=== PATIENT | female | born 1940 | race Caucasian/White ===

== ENCOUNTER → 2018-05-18 | Outpatient (CLI) | payer MEDICARE, OTHER ==
[~2018-05-18] MED LIST: ACEBUTCAFT PO; ASPI325 PO; ASPI81EC PO; ATEN50; ATEN50 PO; CALGLU500; CLIN300 PO; DICL75ER PO; DOC250 PO; HYDACE5 PO; HYDACE5325 PO; IBUP600 PO; IBUP800 PO; INDO75CR PO; K-Dur20 MEQ PO; LOSHYD100 PO; METDOP250; METDOP250 PO; METPRE4DP PO; NAPR500 PO; OXYACE5T PO; Percocet 5-3251 EACH PO; ROSU10TA PO; [UNRECOGNIZED DRUG - REMARK]
== END | disposition home or self-care (01) ==
LOC: LAB 16:45 → LAB SHORT 16:45
DX: N76.4 Abscess of vulva (principal)
CPT/HCPCS: 87070; 87077; 87147; 87186; 87205

== ENCOUNTER 2020-10-15 18:42 | Inpatient (IN) | payer MEDICARE, OTHER ==
[~2020-10-15] VITALS: Ht 162.6 cm; Wt 91.9 kg
[~2020-10-15 18:42] MED LIST changes: +AMLO5 PO; +ASPI81CH PO; +Aspirin EC81 MG PO; +DYAZIDE 37.5-21 EACH PO; +LISI5 PO; +LOSARTAN-HCTZ1 EACH PO; +LOVA40 PO; +OXYC5 PO; +OYSTER SHELL 51 EACH PO; +PROM12.5S PO; +SULFAMETHOXAZO1 EAC1 PO
[2020-10-15 19:30] LABS: BASOPHILS ABSOLUTE AUTO 0.05 K/mm3 (0.00-0.23); BASOPHILS PERCENT AUTO 1 % (0-2); EOSINOPHILS ABSOLUTE AUTO 0.13 K/mm3 (0.00-0.68); EOSINOPHILS PERCENT AUTO 1 % (0-6); Hematocrit 41.7 % (33.0-51.0); Hemoglobin 13.6 g/dL (11.5-16.0); IMMATURE GRAN ABSOLUTE AUTO 0.05 K/mm3 (0.00-0.10); IMMATURE GRAN PERCENT AUTO 1 % (0-1); LYMPHOCYTES ABSOLUTE AUTO 2.37 K/mm3 (0.84-5.20); LYMPHOCYTES PERCENT AUTO 24 % (21-46); MONOCYTES ABSOLUTE AUTO 0.64 K/mm3 (0.16-1.47); MONOCYTES PERCENT AUTO 7 % (4-13); Mean Corpuscular HGB 30.2 pg (26.0-34.0); Mean Corpuscular HGB Conc 32.6 g/dL (31.5-36.5); Mean Corpuscular Volume 93 fL (80-100); Mean Platelet Volume 12.3 fL (9.1-12.4); NEUTROPHILS ABSOLUTE AUTO 6.58 K/mm3 (1.96-9.15); NEUTROPHILS PERCENT AUTO 67 % (41-73); Platelet Count 234 K/mm3 (150-400); RDW Coefficient Variation 13.9 % (11.7-14.2); RDW Standard Deviation 47.4 fL (35.1-46.3); Red Blood Cell Count 4.51 M/mm3 (3.80-5.20); White Blood Cell Count 9.82 K/mm3 (4.00-11.30)
[2020-10-15 19:52] LABS: Alanine Aminotransfer (ALT/SGP 28 U/L (12-78); Albumin, Blood 3.8 g/dL (3.4-5.0); Albumin/Globulin Ratio 1.1 (0.8-1.8); Alk Phos 73 U/L (50-136); Anion Gap 11 mmol/L (6-16); Aspartate Aminotrans (AST/SGOT 20 U/L (12-37); Bilirubin, Total 0.6 mg/dL (0.1-1.0); Blood Urea Nitrogen 24 mg/dL (8-24); Bun/Creatinine Ratio 27.2 (12.0-20.0); CO2, Blood 23 mmol/L (21-32); Calcium, Blood 9.6 mg/dL (8.5-10.1); Chloride, Blood 106 mmol/L (98-108); Creatinine, Blood 0.88 mg/dL (0.40-1.00); Globulin, Blood 3.6 g/dL (2.2-4.0); Glomerular Filtration Rate >60 (60-); Glucose, Blood 152 mg/dL (70-99); Potassium, Blood 3.7 mmol/L (3.5-5.5); Sodium, Blood 140 mmol/L (136-145); Total Protein, Blood 7.4 g/dL (6.4-8.2); Troponin I <0.015 ng/mL (0.000-0.040)
[2020-10-15 20:13] LABS: Thyroid Stimulating Hormone 2.31 uIU/mL (0.360-4.800)
[2020-10-15 20:45] LABS: International Normalized Ratio 1.11; Prothrombin Time Results 11.8 Sec (9.7-11.5)
[2020-10-15] MEDS ORDERED: LOSARTAN-HCTZ1 EAC5 PO (21:00)
[2020-10-15] MEDS ORDERED: ATEN25 PO (21:27)
[2020-10-16 00:42] LABS: Magnesium, Blood 1.9 mg/dL (1.6-2.4)
--- NOTE | 2020-10-16 04:47 | NUR ---
SHIFT SUMMARY NEW ER ADMIT THIS SHIFT (0005), NO ACUTE CHANGES SINCE ASSUMING CARE, SOB W/ANY EXCERTION, AMBULATING W/ST BY ASSIST TO BSC, SLEPT ON/OFF T/O THE NIGHT WAKING SEVERAL TIMES TO TOILET, SLEEPING AT THIS TIME, CALL LIGHT IN REACH, WILL CONT TO MONITOR UNTIL REPORT GIVEN TO DAY RN.
--- NOTE | 2020-10-16 07:45 | NUR ---
SIOBHAN gave me permission to help care for her on 10/16/20 at approximately 0745.
[2020-10-16 09:34] LABS: BASOPHILS ABSOLUTE AUTO 0.05 K/mm3 (0.00-0.23); BASOPHILS PERCENT AUTO 1 % (0-2); EOSINOPHILS ABSOLUTE AUTO 0.14 K/mm3 (0.00-0.68); EOSINOPHILS PERCENT AUTO 2 % (0-6); Hematocrit 42.7 % (33.0-51.0); Hemoglobin 13.9 g/dL (11.5-16.0); IMMATURE GRAN ABSOLUTE AUTO 0.04 K/mm3 (0.00-0.10); IMMATURE GRAN PERCENT AUTO 1 % (0-1); LYMPHOCYTES ABSOLUTE AUTO 2.18 K/mm3 (0.84-5.20); LYMPHOCYTES PERCENT AUTO 25 % (21-46); MONOCYTES ABSOLUTE AUTO 0.49 K/mm3 (0.16-1.47); MONOCYTES PERCENT AUTO 6 % (4-13); Mean Corpuscular HGB 30.4 pg (26.0-34.0); Mean Corpuscular HGB Conc 32.6 g/dL (31.5-36.5); Mean Corpuscular Volume 93 fL (80-100); Mean Platelet Volume 12.2 fL (9.1-12.4); NEUTROPHILS ABSOLUTE AUTO 5.75 K/mm3 (1.96-9.15); NEUTROPHILS PERCENT AUTO 66 % (41-73); Platelet Count 211 K/mm3 (150-400); RDW Coefficient Variation 13.9 % (11.7-14.2); RDW Standard Deviation 47.1 fL (35.1-46.3); Red Blood Cell Count 4.57 M/mm3 (3.80-5.20); White Blood Cell Count 8.65 K/mm3 (4.00-11.30)
[2020-10-16 09:54] LABS: Anion Gap 8 mmol/L (6-16); Blood Urea Nitrogen 21 mg/dL (8-24); Bun/Creatinine Ratio 22.3 (12.0-20.0); CO2, Blood 29 mmol/L (21-32); Calcium, Blood 9.4 mg/dL (8.5-10.1); Chloride, Blood 101 mmol/L (98-108); Creatinine, Blood 0.94 mg/dL (0.40-1.00); Glomerular Filtration Rate >60 (60-); Glucose, Blood 142 mg/dL (70-99); Sodium, Blood 138 mmol/L (136-145); Troponin I <0.015 ng/mL (0.000-0.040)
--- NOTE | 2020-10-16 10:30 | NUR ---
I performed a head to toe assessment on K.
[2020-10-16] MEDS ORDERED: LOVA40 PO (14:28)
[2020-10-16] MEDS ORDERED: DICL75ER PO (14:29)
[2020-10-16] MEDS ORDERED: AMLO5 PO (14:29)
[2020-10-16] MEDS ORDERED: ATEN100 PO (14:29)
--- NOTE | 2020-10-16 17:50 | NUR ---
SHIFT SUMMARY PATIENT ALERT AND ORIENTED THROUGHOUT THIS SHIFT. PATIENT SITTING UP IN BED THROUGHOUT THIS SHIFT. PATIENT REMAINS ON 4L O2 THROUGHOUT THIS SHIFT WITH WHEEZY LUNG SOUNDS. PATIENT DENIES PAIN THROUGHOUT THIS SHIFT. PATIENT GETS SOB WITH EXERTION. PATIENT UP TO THE BATHROOOM INDEPENDENTLY THROUGHOUT THIS SHIFT. PATIENT CURRENTLY SITTING UP IN BED, AT BEDSIDE. PATIENT DENIES FURTHER NEEDS AT THIS TIME.
[2020-10-17 01:29] LABS: BASOPHILS ABSOLUTE AUTO 0.06 K/mm3 (0.00-0.23); BASOPHILS PERCENT AUTO 1 % (0-2); EOSINOPHILS ABSOLUTE AUTO 0.22 K/mm3 (0.00-0.68); EOSINOPHILS PERCENT AUTO 2 % (0-6); Hematocrit 42.1 % (33.0-51.0); Hemoglobin 13.7 g/dL (11.5-16.0); IMMATURE GRAN ABSOLUTE AUTO 0.04 K/mm3 (0.00-0.10); IMMATURE GRAN PERCENT AUTO 0 % (0-1); LYMPHOCYTES ABSOLUTE AUTO 3.36 K/mm3 (0.84-5.20); LYMPHOCYTES PERCENT AUTO 36 % (21-46); MONOCYTES ABSOLUTE AUTO 0.78 K/mm3 (0.16-1.47); MONOCYTES PERCENT AUTO 8 % (4-13); Mean Corpuscular HGB 30.2 pg (26.0-34.0); Mean Corpuscular HGB Conc 32.5 g/dL (31.5-36.5); Mean Corpuscular Volume 93 fL (80-100); Mean Platelet Volume 12.7 fL (9.1-12.4); NEUTROPHILS ABSOLUTE AUTO 5.01 K/mm3 (1.96-9.15); NEUTROPHILS PERCENT AUTO 53 % (41-73); Platelet Count 233 K/mm3 (150-400); RDW Coefficient Variation 13.7 % (11.7-14.2); RDW Standard Deviation 46.7 fL (35.1-46.3); Red Blood Cell Count 4.54 M/mm3 (3.80-5.20); White Blood Cell Count 9.47 K/mm3 (4.00-11.30)
[2020-10-17 01:38] LABS: Albumin, Blood 3.6 g/dL (3.4-5.0); Anion Gap 8 mmol/L (6-16); Blood Urea Nitrogen 21 mg/dL (8-24); CO2, Blood 31 mmol/L (21-32); Calcium, Blood 9.6 mg/dL (8.5-10.1); Chloride, Blood 100 mmol/L (98-108); Creatinine, Blood 1.05 mg/dL (0.40-1.00); Glomerular Filtration Rate 54 (60-); Glucose, Blood 106 mg/dL (70-99); Phosphorus, Blood 3.4 mg/dL (2.5-4.9); Potassium, Blood 3.4 mmol/L (3.5-5.5); Sodium, Blood 139 mmol/L (136-145)
--- NOTE | 2020-10-17 07:26 | NUR ---
Patient oob on commode independently from bed. Brandee diuresed well overnight and was able to stick to a small amount of ice chips overnight. No complaints of discomfort. However, she was still SOB with minimal exertion. TELE remained Atrial Fib in the 120's all night
--- NOTE | 2020-10-17 08:03 | NUR ---
ECHOCARDIOGRAM COMPLETED
--- NOTE | 2020-10-17 11:54 | NUR ---
PATIENT DAUGHTER, KAMILAH, UPDATED. WANTS RESULTS OF ECHO CALLED TO HER AT [phone].
--- NOTE | 2020-10-17 16:44 | NUR ---
ADVISED OF B.P. AND HEART RATE. LOPRESSOR IV AND PO HAVE BEEN GIVEN. WISHES REPEAT B.P. IN ABOUT 20 MINUTES.
--- NOTE | 2020-10-17 16:54 | NUR ---
ALERT. ORIENTED. STANDBY ASSIST. TELE ON AND WAS RUNNING 126-150 AFIB. GIVEN LOPRESSOR AND NOW 130 WITH AWARE. WEANING OXYGEN DOWN. CURRENTLY AT 2 LPM WITH SATS MAINTAINED IN 90'S. DENIES SOB. ECHO DONE THIS AM, BUT REPORT NOT IN COMPUTER YET. ABLE TO MAKE NEEDS KNOWN. WCTM
--- NOTE | 2020-10-17 17:17 | NUR ---
TALKED TO ABOUT B.P. AND HEART RATE. GIVE 5 MG LOPRESSOR IV NOW.
--- NOTE | 2020-10-17 17:27 | NUR ---
Spiritual care note: Brandee tells me she is hopeful and feeling "much better." She reports a strong chuck and feels well loved and supported by family. No cocnerns presented. Prayer for continued healing provided. I will remain available.
--- NOTE | 2020-10-17 18:20 | NUR ---
PER PATIENT TO PCU. HEART RATE 130'S AFIB.
[2020-10-17 18:36] LABS: Magnesium, Blood 1.9 mg/dL (1.6-2.4); Potassium, Blood 3.4 mmol/L (3.5-5.5)
--- NOTE | 2020-10-17 18:51 | NUR ---
Received the pt from medical floor to PCU 6. She is in no acute distress. Conversant, wearing oxygen at 2 l/min. Vital signs taken and heart rhythm verified with tech to be afib 128-132 bpm. Heparin gtt infusing at 19 u/kg/hour or 27.4 cc/hour.
--- NOTE | 2020-10-17 19:05 | NUR ---
PATIENT TO PCU. REPORT TO ADDISON GARCIA. LABS OF MAGNESIUM AND POTASSIUM ORDERED PER DR. GAINES.
--- NOTE | 2020-10-17 19:11 | NUR ---
At pt's request, her daughter Rashida was called on the room phone to update her on the pt's transfer to PCU and current condition. Rashida states that she is concerned and would like the doctor to consult cardiology. The pt is talking and joking with me at the bedside, now talking with her daughter on the phone.
--- NOTE | 2020-10-17 19:25 | NUR ---
Call to Dr. Conn to check and see if any new orders are needed after pt's transfer to PCU 6. No new medication orders at this time; plan is to continue IV metoprolol PRN as ordered, and as long as pt's heart rate doesn't go above 150 and as long as she is aysmptomatic with current heart rate.
--- NOTE | 2020-10-17 19:30 | NUR ---
ASSUMED CARE RECEIVED BEDSIDE REPORT FROM ADDISONRN; PT A&O X4; VSS; AFIB NOTED ON TELE W/ HR 120; HEP GTT VARIFIED @ 19U/KG/HR; O2 SATS >93 ON 2L NC; EDUCATION PROVIDED FOR UNIT SAFETY/PROTOCOL; EDUCATED PT ON TELE MONITOR, AFIB, AND HEP GTT; NO DISTRESS NOTED; CALL LIGHT IN REACH; BED IN LOWEST POSITION.
[2020-10-18 05:39] LABS: Albumin, Blood 3.4 g/dL (3.4-5.0); Anion Gap 8 mmol/L (6-16); Blood Urea Nitrogen 22 mg/dL (8-24); Bun/Creatinine Ratio 22.9 (12.0-20.0); CO2, Blood 28 mmol/L (21-32); Calcium, Blood 9.4 mg/dL (8.5-10.1); Chloride, Blood 102 mmol/L (98-108); Creatinine, Blood 0.96 mg/dL (0.40-1.00); Glomerular Filtration Rate 60 (60-); Glucose, Blood 97 mg/dL (70-99); Phosphorus, Blood 3.6 mg/dL (2.5-4.9); Potassium, Blood 3.3 mmol/L (3.5-5.5); Sodium, Blood 138 mmol/L (136-145)
--- NOTE | 2020-10-18 05:59 | NUR ---
SHIFT SUMMARY PT A&O X 4; AGGITATED AT TIMES; WAS QUITE RUDE TO METER TESTER PRIMARY AND CURSED AT HIM; DENIES CHEST PAIN; VSS; HR REMAINS ELEVATED; LOPRESSOR PO AND IV PROVIDED THIS SHIFT; HEP GTT AT 19U/KG/HR, PER PHARMACY; O2 SATS >93 ON 2L NC; PT STATES SHE DOES NOT USE O2 AT BASELINE; SLEPT SEVERAL HOURS IN BETWEEN INTERVENTIONS; CALL LIGHT IN REACH; BED IN LOWEST POSITION; WILL CONTINUE TO MONITOR CLOSELY UNTIL HAND OFF TO DAY SHIFT RN.
[2020-10-18 12:51] LABS: CHOL/HDL RATIO 3.5; Cholesterol 148 mg/dL (50-200); HDL Cholesterol 42 mg/dL (>39); LDL/HDL RATIO 1.6; Low Density Lipoprotein Chol 68 mg/dL (0-110); Triglycerides 188 mg/dL (30-160); Very Low Density Lipoprot Chol 37 mg/dL (6-32)
[2020-10-18 13:35] LABS: Influenza A, PCR Negative (NEGATIVE); Influenza B, PCR Negative (NEGATIVE); Resp Syncytial Virus, PCR Negative (NEGATIVE); SARS-Cov-2 (COVID-19) PCR, MMC Negative (NEGATIVE)
--- NOTE | 2020-10-18 17:52 | NUR ---
PATIENT ALERT AND ORIENTED, VSS AND O2 TITRATED DOWN TO ROOM AIR THIS SHIFT, PATIENT TOLERATING WELL. ANAHI/CARDIOVERSION DONE WITH DR. MATUTE THIS SHIFT, SEE TIMEOUT/SEDATION/MEDICATION DOCUMENTATION. PATIENT TOLERATED PROCEDURE WELL, X1 SHOCK AT 200 J AND CONVERTED TO NSR.
[2020-10-19 04:21] LABS: BASOPHILS ABSOLUTE AUTO 0.04 K/mm3 (0.00-0.23); BASOPHILS PERCENT AUTO 1 % (0-2); EOSINOPHILS ABSOLUTE AUTO 0.25 K/mm3 (0.00-0.68); EOSINOPHILS PERCENT AUTO 3 % (0-6); Hematocrit 41.6 % (33.0-51.0); Hemoglobin 13.7 g/dL (11.5-16.0); IMMATURE GRAN ABSOLUTE AUTO 0.03 K/mm3 (0.00-0.10); IMMATURE GRAN PERCENT AUTO 0 % (0-1); LYMPHOCYTES ABSOLUTE AUTO 2.54 K/mm3 (0.84-5.20); LYMPHOCYTES PERCENT AUTO 32 % (21-46); MONOCYTES ABSOLUTE AUTO 0.67 K/mm3 (0.16-1.47); MONOCYTES PERCENT AUTO 8 % (4-13); Mean Corpuscular HGB 30.4 pg (26.0-34.0); Mean Corpuscular HGB Conc 32.9 g/dL (31.5-36.5); Mean Corpuscular Volume 92 fL (80-100); Mean Platelet Volume 12.2 fL (9.1-12.4); NEUTROPHILS ABSOLUTE AUTO 4.41 K/mm3 (1.96-9.15); NEUTROPHILS PERCENT AUTO 56 % (41-73); Platelet Count 216 K/mm3 (150-400); RDW Coefficient Variation 13.8 % (11.7-14.2); RDW Standard Deviation 46.9 fL (35.1-46.3); White Blood Cell Count 7.94 K/mm3 (4.00-11.30)
[2020-10-19 04:42] LABS: Bun/Creatinine Ratio 24.8 (12.0-20.0); Calcium, Blood 9.4 mg/dL (8.5-10.1); Creatinine, Blood 1.01 mg/dL (0.40-1.00); Potassium, Blood 3.3 mmol/L (3.5-5.5)
--- NOTE | 2020-10-19 05:59 | NUR ---
SHIFT SUMMARY PT A&O X 4; VSS; DENIES CHEST PAIN; PT REMAINED IN NSR FOR REMAINDER OF SHIFT W/ HR 70-80; HEP GTT @ 11 U/KG/HR; PT STATES SHE FEELS WELL AND HER DEMEANOR SEEMS IMPROVED FROM PREVIOUS SHIFT; O2 SATS >93 ON RA; PT SLEPT SEVERAL HOURS; NO DISTRESS NOTED; CALL LIGHT IN REACH; BED IN LOWEST POSITION; WILL CONTINUE TO MONITOR CLOSELY UNTIL HAND OFF TO DAY SHIFT RN.
--- NOTE | 2020-10-19 13:43 | NUR ---
PATIENT ON AMIODORONE DRIP, HR MAINTAINING IN 130S. DR. JUJU ARAGON.
--- NOTE | 2020-10-19 17:31 | NUR ---
PATIENT CONVERTED BACK INTO A FIB THIS SHIFT WITH HR IN THE 150s, DR. PERDOMO AND DR. MATUTE NOTIFIED. AMIODORONE BOLUS AND DRIP ORDERED BY DR. MATUTE, PATIENT HR NOW RUNNING IN 120S. ON ROOM AIR WITH O2 MAINTAINING, BUT COMPLAINS OF COUGH AT TIMES. PATIENT ASYMPTOMATIC OF HIGH HR. PATIENT ABLE TO TOLERATE AMBULATION TO BEDSIDE COMMODE WITH X1 ASSIST FOR LINE MANAGEMENT, VOIDING FREQUENTLY THROUGH SHIFT. PATIENT DENIED CHEST PAIN/DISCOMFORT THIS SHIFT.
[2020-10-20 04:21] LABS: BASOPHILS ABSOLUTE AUTO 0.06 K/mm3 (0.00-0.23); BASOPHILS PERCENT AUTO 1 % (0-2); EOSINOPHILS ABSOLUTE AUTO 0.23 K/mm3 (0.00-0.68); EOSINOPHILS PERCENT AUTO 2 % (0-6); Hemoglobin 14.7 g/dL (11.5-16.0); IMMATURE GRAN ABSOLUTE AUTO 0.07 K/mm3 (0.00-0.10); IMMATURE GRAN PERCENT AUTO 1 % (0-1); LYMPHOCYTES ABSOLUTE AUTO 2.97 K/mm3 (0.84-5.20); LYMPHOCYTES PERCENT AUTO 28 % (21-46); MONOCYTES ABSOLUTE AUTO 0.89 K/mm3 (0.16-1.47); MONOCYTES PERCENT AUTO 8 % (4-13); Mean Corpuscular HGB 29.9 pg (26.0-34.0); Mean Corpuscular HGB Conc 32.7 g/dL (31.5-36.5); Mean Corpuscular Volume 92 fL (80-100); NEUTROPHILS ABSOLUTE AUTO 6.58 K/mm3 (1.96-9.15); NEUTROPHILS PERCENT AUTO 61 % (41-73); Platelet Count 250 K/mm3 (150-400); RDW Coefficient Variation 13.9 % (11.7-14.2); RDW Standard Deviation 46.6 fL (35.1-46.3); Red Blood Cell Count 4.92 M/mm3 (3.80-5.20)
[2020-10-20 04:35] LABS: Albumin, Blood 3.9 g/dL (3.4-5.0); Anion Gap 8 mmol/L (6-16); Blood Urea Nitrogen 23 mg/dL (8-24); Bun/Creatinine Ratio 22.5 (12.0-20.0); CO2, Blood 25 mmol/L (21-32); Chloride, Blood 104 mmol/L (98-108); Creatinine, Blood 1.02 mg/dL (0.40-1.00); Glomerular Filtration Rate 56 (60-); Glucose, Blood 114 mg/dL (70-99); Phosphorus, Blood 3.4 mg/dL (2.5-4.9); Sodium, Blood 137 mmol/L (136-145)
--- NOTE | 2020-10-20 06:25 | NUR ---
SHIFT SUMMARY NO ACUTE CHANGES THIS SHIFT. PT A&OX4. SP02>92% ON RA. TELEMETRY READS AFIB, HR 110'S-130'S. AMIODERONE GTT AND HEPARIN GTT INFUSING PER EMAR. PT DENIES PAIN. PT SBA UP TO BSC MULTIPLE TIMES TO VOID AND ONE BM THIS SHIFT. NEW IV PLACED IN R FOREARM. PT'S DAUGHTER CALLED AT APPROX 2300 FOR PT UPDATE. STATED SHE IS COMING DOWN AT END OF THIS MONTH TO CARE FOR HER PARENTS. PT STATED MULTIPLE TIMES "I AM READY TO GO HOME" "I WANT TO GO HOME". PT SLEPT ONLY A COUPLE HOURS DURING NIGHT. CALL LIGHT IN REACH. WILL GIVE REPORT TO ONCOMING SHIFT NURSE.
--- NOTE | 2020-10-20 11:44 | NUR ---
PATIENT HR MAINTAINING IN 130S, DR. ROBERTO NOTIFIED, DR. OTTO NOTIFIED AND DISCUSSED CASE. DR. OTTO AGREED TO COME AND EVALUATE PATIENT AND GAVE ORDERS TO RESTART AMIODORONE DRIP AT 0.5 MG / HR.
--- NOTE | 2020-10-20 13:23 | NUR ---
CARDIOVERSION DONE AT BEDSIDE WITH PROCEDURE START TIME OF 1215. THIS RN, AMOL RN, DEISY RT, AND DR. OTTO AT BEDSIDE FOR PROCEDURE. MEDS GIVEN PER HC SEDATION/MEDICATION RECORD. SHOCK ADMINISTERED AT 200 J TWICE, PATIENT AT FIRST CONVERTED TO NSR, BUT CONVERTED BACK TO A FIB EACH TIME. PATIENT TOLERATED PROCEDURE WELL, PATIENT HAS WOKEN UP AND NO SIGNS OF ACUTE DISTRESS AT THIS TIME.
--- NOTE | 2020-10-20 17:23 | NUR ---
PATIENT HR REMAINED ELEVATED THIS SHIFT AFTER STOPPING AMIODORONE DRIP, DR. ROBERTO AND DR. OTTO NOTIFIED, CARDIOVERSION DONE AT BEDSIDE WITH DETAILS EXPLAINED IN PREVIOUS NOTE. PATIENT'S HR AT THIS TIME IN 110S-120S, PATIENT REMAINS ASYMPTOMATIC, ON ROOM AIR WITH VSS.
--- NOTE | 2020-10-21 05:44 | NUR ---
SHIFT SUMMARY PT A&OX4. SP02>92% ON RA. TELEMETRY READS AFIB, HR 120'S. PT WAS GIVEN IV LOPRESSOR PRN FOR ELEVATED HR X1 THIS SHIFT WITH NO CHANGE. PT DENIES PAIN. PT UP TO BSC MULTIPLE TIMES THIS SHIFT. PT DID NOT SLEEP THE NIGHT BEFORE, PT DID SLEEP SEVERAL HOURS THIS SHIFT, STATES THIS MORNING SHE FEELS "MUCH BETTER NOW THAT I GOT SLEEP". PT'S DAUGHTER CALLED LAST NIGHT AT APPROX 2200 FOR A PT UPDATE. PT'S DAUGHTER STATED SHE DOES NOT WANT HER MOM DISCHARGED TOMORROW (THURSDAY) UNTIL THE PT'S "HR IS FIXED". CALL LIGHT IN REACH. WILL GIVE REPORT TO ONCOMING SHIFT NURSE.
[2020-10-21 10:43] LABS: Albumin, Blood 4.1 g/dL (3.4-5.0); Anion Gap 10 mmol/L (6-16); Blood Urea Nitrogen 27 mg/dL (8-24); Bun/Creatinine Ratio 25.7 (12.0-20.0); CO2, Blood 23 mmol/L (21-32); Calcium, Blood 10.3 mg/dL (8.5-10.1); Chloride, Blood 101 mmol/L (98-108); Creatinine, Blood 1.05 mg/dL (0.40-1.00); Glomerular Filtration Rate 54 (60-); Glucose, Blood 150 mg/dL (70-99); Phosphorus, Blood 3.3 mg/dL (2.5-4.9); Potassium, Blood 4.2 mmol/L (3.5-5.5); Sodium, Blood 134 mmol/L (136-145)
--- NOTE | 2020-10-21 17:59 | NUR ---
SHIFT SUMMARY PT IS ALERT AND ORINTEDx4. TELEMETERY HAS SHOWN TO BE A-FIB WITH RATES 110'S-120'S OCC 130'S WITH ACTIVITY. DISCUSSED HR PLAN WITH DR ROBRETO AND PLAN IS TO HAVE CARDIOLOGY FOLLOWUP TOMORROW. URINE OUTPUT FROM IV LASIX TODAY WAS 500ML. VITALS HAVE REMAINED STABLE.
[2020-10-22 05:02] LABS: Bun/Creatinine Ratio 27.5 (12.0-20.0); Creatinine, Blood 1.31 mg/dL (0.40-1.00); Potassium, Blood 4.4 mmol/L (3.5-5.5)
--- NOTE | 2020-10-22 05:17 | NUR ---
SHIFT SUMMARY NO ACUTE CHANGES THIS SHIFT. PT A&OX4. SP02>92% ON RA. TELEMETRY READS AFIB, HR 90'S-120'S. PT DENIES PAIN. PT DID C/O OF BEING NERVOUS ABOUT MEETING WITH AMISH IN AM TO DISCUSS PLAN. LISTENED TO PT AND GAVE WARM BLANKET. PT WAS ABLE TO SLEEP AFTER THAT. PT AMBULATED TO BATHROOM WITH NO ISSUES THIS SHIFT. PT STATED SHE WAS HUNGRY AND ATE 1/2 TURKEY SANDWICH AND JELLO. CALL LIGHT IN REACH. WILL GIVE REPORT TO ONCOMING SHIFT.
--- NOTE | 2020-10-22 17:54 | NUR ---
SHIFT SUMMARY: PATIENT IS ALERT AND ORIENTED X4. ON ROOM AIR. TELE SHOWING AFIB WITH HR AVERAGING 110-120's. PT DENIES CHEST PAIN AND PRESSURE. BP STABLE. NO ACUTE CHANGES THIS SHIFT. PATIENT UP TO BEDISDE COMMODE WITH MINIMAL SHORTNESS OF BREATH. LEFT ANTICUBITAL AND R FOREARM IV SALINE LOCKED AND FLUSHING WELL. DR. RODRIGUEZ IN TO SEE PATIENT WITH CHANGES OF MEDS. PT IN TO VISIT. WILL CONTINUE TO MONITOR AND REPORT OFF.
[2020-10-23 04:11] LABS: Hematocrit 47.7 % (33.0-51.0); Hemoglobin 15.9 g/dL (11.5-16.0)
[2020-10-23 04:30] LABS: Bun/Creatinine Ratio 30.5 (12.0-20.0); Calcium, Blood 9.9 mg/dL (8.5-10.1); Creatinine, Blood 1.28 mg/dL (0.40-1.00); Potassium, Blood 4.6 mmol/L (3.5-5.5)
--- NOTE | 2020-10-23 06:05 | NUR ---
SHIFT SUMMARY PATIENT PLEASENT AND COOPERATIVE THROUGHOUT THE NIGHT. PATIENT APPEARED TO SLEEP WELL THROUGHOUT MOST OF THE NIGHT. PATIENT'S HEART RATE REMAINED AFIB WITH A RATE IN THE 110'S-120'S. PATIENT CURRENTLY APPEARS TO BE SLEEPING, RESPIRATIONS EVEN AND UNLABORED AT THIS TIME. PATIENT'S DAUGHTER JOSIAS REQUESTING A CALL FROM THE DIRECTOR PRODUCT SAFET[employer] TODAY TO DISCUSE PATIENT'S PLAN OF CARE, WILL INFORM ONCOMING RN OF DAUGHTER'S REQUEST.
--- NOTE | 2020-10-23 11:02 | NUR ---
UPDATE: CALL PLACED TO DR. RODRIGUEZ. PLANS TO SEE PATIENT TODAY AND FOLLOW UP. CALL PLACED TO DR. ROBERTO. PATIENT ACTIVITY CHANGED TO AD ANJANA. WILL CONTINUE TO MONITOR PT STATUS.
[2020-10-23] MEDS ORDERED: METO50 PO (11:30)
[2020-10-23] MEDS ORDERED: ACET325 PO (11:31)
[2020-10-23] MEDS ORDERED: DOCU100 PO (11:34)
[2020-10-23] MEDS ORDERED: ATOR40TA PO (11:34)
[2020-10-23] MEDS ORDERED: Pacerone400 MG PO (11:34)
[2020-10-23] MEDS ORDERED: Amiodarone HCl200 MG PO (11:36)
[2020-10-23] MEDS ORDERED: LOSA50 PO (11:37)
[2020-10-23] MEDS ORDERED: LASIX20 M2 PO (11:37)
[2020-10-23] MEDS ORDERED: POTCHL20ER PO (11:39)
[2020-10-23] MEDS ORDERED: XARELTO20 MG PO (11:40)
[2020-10-23] MEDS ORDERED: SPIR25 PO (11:41)
--- NOTE | 2020-10-23 12:14 | NUR ---
PT REPORTING FRQUENCY AND URGENCYTO VOID WITH MINIMAL OUTPUT, BLADDERSCAN AT 21cc; PT CONTINUE TO REPORT THE URGE TO VOID; PT BECOMES DIAPHORETIC, COOL AND CLAMMY; NOTIFIED DR ROBERTO, DR MOIRA CONNELL.
--- NOTE | 2020-10-23 16:09 | NUR ---
DISCHARGE/SUMMARY: PT ALERT AND ORIENTED X4. ON ROOM AIR. TELE SHOWING AFIB HR AVERAGING 110-120's. PATIENT DENIES CHEST PAIN, PRESSURE, DIZZINESS, AND NAUSEA. VITAL SIGNS STABLE WITH ELEVATED HR. FLUID RESTRICTION MAINTAINED. NO ACUTE CHANGES. DISCHARGE INSTRUCTIONS REVIEWED AND QUESTIONS ANSWERED. HEART CENTER APPLIED ZIO PATCH. IN TO SEE PT, AND TAKEN TO CAR VIA WHEELCHAIR.
[2021-02-04] MEDS ORDERED: METO25ER PO (05:04)
== END 2020-10-23 16:05 | disposition home or self-care (01) | DRG 291 ==
LOC: ER 18:42 → MEDS 23:59 → PCU 23:59 → MEDS 10-16 00:08 → PCU 10-17 18:37
PROVIDERS: Emergency Medicine; Family Medicine; Internal Medicine; Internal Medicine Cardiovascular Disease; Student in an Organized Health Care Education/Training Program; ADMIT Internal Medicine
PROC: 5A2204Z Restoration of Cardiac Rhythm, Single (ICD-10-PCS; principal; 2020-10-18)
PROC: 5A2204Z Restoration of Cardiac Rhythm, Single (ICD-10-PCS; 2020-10-18)
PROC: B24BZZ4 Ultrasonography of Heart with Aorta, Transesophageal (ICD-10-PCS; 2020-10-20)
DX: I11.0 Hypertensive heart disease with heart failure (principal); J96.01 Acute respiratory failure with hypoxia; I50.21 Acute systolic (congestive) heart failure; N17.9 Acute kidney failure, unspecified; I48.91 Unspecified atrial fibrillation; Z79.82 Long term (current) use of aspirin; E78.5 Hyperlipidemia, unspecified; E78.6 Lipoprotein deficiency; E66.01 Morbid (severe) obesity due to excess calories; Z68.37 Body mass index [BMI] 37.0-37.9, adult; Z87.891 Personal history of nicotine dependence; I34.0 Nonrheumatic mitral (valve) insufficiency
CPT/HCPCS: 0241U; 36415; 71045; 80048; 80053; 80061; 80069; 83735; 83880; 84132; 84145; 84443; 84484; 85014; 85018; 85025; 85610; 85730; 93005; 93010; 93246; 93306; 93312; 93325; 94760; 96374; 96375; 98960; 99285-25; A9270; J0282; J1644; J1940; J2250; J3010; J7060

== ENCOUNTER 2020-12-04 07:27 | Day surgery (SDC) | payer MEDICARE, OTHER ==
[~2020-12-04] VITALS: Ht 162.6 cm; Wt 93.0 kg
[~2020-12-04 07:27] MED LIST changes: +ACET325 PO; +ATEN100 PO; +ATEN25 PO; +ATOR40TA PO; +Amiodarone HCl200 MG PO; +DOCU100 PO; +LASIX20 M2 PO; +LOSA50 PO; +LOSARTAN-HCTZ1 EAC5 PO; +METO50 PO; +POTCHL20ER PO; +Pacerone400 MG PO; +SPIR25 PO; +XARELTO20 MG PO
--- NOTE | 2020-12-04 09:16 | NUR ---
PT STABLE POST CARDIOVERSION. PT DROWSY, BUT CONVERSING APPROPRIATELY; DENIES PAIN POST PROCEDURE. MONITOR SB 50'S, B/P 90-100'S/60'S, SPO2 92-97% RA. PT'S DAUGHTER AT BEDSIDE ATTENTIVE.
--- NOTE | 2020-12-04 09:58 | NUR ---
PT DRESSED SELF WITH MIN ASSISTANCE FROM DAUGHTER. PT DENIES BEING LIGHTHEADED OR DIZZY WHEN GETTING UP-IV REMOVED, CANNULA INTACT. PT AND DAUGHTER RECEIVED DISCHARGE INSTRUCTIONS, MED LIST AND AFTER CARE INSTRUCTIONS; VERBALIZED GOOD UNDERSTANDING. PT LEFT FACILITY VIA W/C, CONDITION STABLE.
[2021-02-04] MEDS ORDERED: METO25ER PO (05:04)
== END 2020-12-04 23:02 | disposition home or self-care (01) ==
LOC: MHTC 07:27
DX: I48.91 Unspecified atrial fibrillation (principal); I48.92 Unspecified atrial flutter; I49.3 Ventricular premature depolarization; R00.1 Bradycardia, unspecified; I13.0 Hypertensive heart and chronic kidney disease with heart failure and stage 1 through stage 4 chronic kidney disease, or unspecified chronic kidney disease; N18.9 Chronic kidney disease, unspecified; I50.23 Acute on chronic systolic (congestive) heart failure; I70.0 Atherosclerosis of aorta; I08.3 Combined rheumatic disorders of mitral, aortic and tricuspid valves; E78.5 Hyperlipidemia, unspecified; E66.9 Obesity, unspecified; J45.909 Unspecified asthma, uncomplicated; Z87.891 Personal history of nicotine dependence; Z68.34 Body mass index [BMI] 34.0-34.9, adult; Z79.01 Long term (current) use of anticoagulants
CPT/HCPCS: 36415; 80048; 80061; 84450; 84460; 85025; 85610; 92960; 93005; 93010; 99152; J2250; J3010; J7040

== ENCOUNTER 2021-02-06 08:52 | Emergency (ER) | payer MEDICARE, OTHER ==
[~2021-02-06] VITALS: Ht 162.6 cm; Wt 91.2 kg
[~2021-02-06 08:52] MED LIST changes: +METO25ER PO
== END 2021-02-06 10:10 | disposition home or self-care (01) ==
LOC: ER 08:52
DX: Z48.00 Encounter for change or removal of nonsurgical wound dressing (principal); Z88.0 Allergy status to penicillin; Z79.899 Other long term (current) drug therapy; Z79.01 Long term (current) use of anticoagulants; I10 Essential (primary) hypertension; E78.5 Hyperlipidemia, unspecified; I48.91 Unspecified atrial fibrillation
CPT/HCPCS: 99282

== ENCOUNTER 2022-02-17 18:47 | Inpatient (IN) | payer MEDICARE ==
[~2022-02-17] VITALS: Ht 152.4 cm; Wt 96.0 kg
[2022-02-17 19:35] LABS: BASOPHILS ABSOLUTE AUTO 0.04 K/mm3 (0.00-0.23); BASOPHILS PERCENT AUTO 1 % (0-2); EOSINOPHILS ABSOLUTE AUTO 0.13 K/mm3 (0.00-0.68); EOSINOPHILS PERCENT AUTO 2 % (0-6); Hematocrit 41.9 % (33.0-51.0); Hemoglobin 13.6 g/dL (11.5-16.0); IMMATURE GRAN ABSOLUTE AUTO 0.02 K/mm3 (0.00-0.10); IMMATURE GRAN PERCENT AUTO 0 % (0-1); LYMPHOCYTES PERCENT AUTO 35 % (21-46); MONOCYTES ABSOLUTE AUTO 0.54 K/mm3 (0.16-1.47); MONOCYTES PERCENT AUTO 7 % (4-13); Mean Corpuscular HGB 31.6 pg (26.0-34.0); Mean Corpuscular HGB Conc 32.5 g/dL (31.5-36.5); Mean Corpuscular Volume 97 fL (80-100); Mean Platelet Volume 12.3 fL (9.1-12.4); NEUTROPHILS ABSOLUTE AUTO 4.19 K/mm3 (1.96-9.15); NEUTROPHILS PERCENT AUTO 55 % (41-73); Platelet Count 223 K/mm3 (150-400); RDW Coefficient Variation 13.3 % (11.7-14.2); RDW Standard Deviation 47.4 fL (35.1-46.3); Red Blood Cell Count 4.31 M/mm3 (3.80-5.20); White Blood Cell Count 7.62 K/mm3 (4.00-11.30)
[2022-02-17] MEDS ORDERED: AMIODARONE HCL100 M3 PO (19:43)
[2022-02-17 19:56] LABS: Albumin, Blood 3.7 g/dL (3.4-5.0); Albumin/Globulin Ratio 1.1 (0.8-1.8); Bilirubin, Total 0.8 mg/dL (0.1-1.0); Calcium, Blood 9.2 mg/dL (8.5-10.1); Creatinine, Blood 1.05 mg/dL (0.40-1.00); Globulin, Blood 3.3 g/dL (2.2-4.0); Potassium, Blood 4.3 mmol/L (3.5-5.5)
[2022-02-18 04:37] LABS: BASOPHILS ABSOLUTE AUTO 0.03 K/mm3 (0.00-0.23); BASOPHILS PERCENT AUTO 0 % (0-2); EOSINOPHILS ABSOLUTE AUTO 0.11 K/mm3 (0.00-0.68); EOSINOPHILS PERCENT AUTO 2 % (0-6); Hematocrit 39.9 % (33.0-51.0); Hemoglobin 13.2 g/dL (11.5-16.0); IMMATURE GRAN ABSOLUTE AUTO 0.03 K/mm3 (0.00-0.10); IMMATURE GRAN PERCENT AUTO 0 % (0-1); LYMPHOCYTES ABSOLUTE AUTO 2.24 K/mm3 (0.84-5.20); LYMPHOCYTES PERCENT AUTO 30 % (21-46); MONOCYTES ABSOLUTE AUTO 0.54 K/mm3 (0.16-1.47); MONOCYTES PERCENT AUTO 7 % (4-13); Mean Corpuscular HGB 31.3 pg (26.0-34.0); Mean Corpuscular HGB Conc 33.1 g/dL (31.5-36.5); Mean Corpuscular Volume 95 fL (80-100); Mean Platelet Volume 12.5 fL (9.1-12.4); NEUTROPHILS PERCENT AUTO 61 % (41-73); Platelet Count 209 K/mm3 (150-400); RDW Coefficient Variation 13.5 % (11.7-14.2); RDW Standard Deviation 46.8 fL (35.1-46.3); Red Blood Cell Count 4.22 M/mm3 (3.80-5.20); White Blood Cell Count 7.55 K/mm3 (4.00-11.30)
[2022-02-18 05:13] LABS: Albumin, Blood 3.6 g/dL (3.4-5.0); Albumin/Globulin Ratio 1.1 (0.8-1.8); Bilirubin, Total 0.7 mg/dL (0.1-1.0); Bun/Creatinine Ratio 21.3 (12.0-20.0); Calcium, Blood 9.3 mg/dL (8.5-10.1); Creatinine, Blood 1.08 mg/dL (0.40-1.00); Globulin, Blood 3.2 g/dL (2.2-4.0); Potassium, Blood 4.1 mmol/L (3.5-5.5); Total Protein, Blood 6.8 g/dL (6.4-8.2)
--- NOTE | 2022-02-18 06:52 | NUR ---
Assumed care of patient at 02:38 upon transfer from the ER. Pt was dyspneic with transfer from cart to bed and SpO2 was 86 - 90%. 2 lpm nasal cannula applied for the remainder of the night, remains in place. Pt has history of Afib RVR with hospitalization in October, at which time she had a successful cardioversion. Overnight, the atrial fibrillation has persisted with rates in the 110s - 130s.
--- NOTE | 2022-02-18 13:40 | NUR ---
PT CARDIOVERSION COMPLETED, 200J X 1 SHOCK SUCCESSFUL, SINUS NOW, STUDENTS X 2 IN ROOM, DR MORENO ANESTHESIA PRESENT PRE,DURING,POST. PT WAKING UP NOW AND APRITA PROCEDURE WELL
--- NOTE | 2022-02-18 18:59 | NUR ---
SHIFT SUMMARY: PT CONTINUES A&Ox4. CARDIOVERSION COMPLETED AT BEDSIDE APPROX 1330 TODAY, PT HAS BEEN SINUS RHYTHM SINCE W/NO C/O SOB OR CP, HR IN 70s. PT MAINTAINING O2 SATS >92% ON RA SINCE CARDIOVERSION. SBA TO BSC. USING CALL LIGHT APPROPRIATELY TO MAKE NEEDS KNOWN, COOPERATIVE WITH CARE. AT THIS TIME, PT RESTING QUIETLY IN BED WITH TV ON. WILL CONTINUE TO MONITOR AND TREAT ACCORDINGLY UNTIL CHANGE OF SHIFT.
--- NOTE | 2022-02-19 00:44 | NUR ---
00:20 HEART RHYTHM CHANGED FROM SINUS RHYTHM WITH PREMATURE ATRIAL COMPLEXES TO ATRIAL FIBRILLATION WITH RVR, RATES 100S - 120S. PT IS ASYMPTOMATIC, DENIES PALPITATIONS AND/OR SHORTNESS OF BREATH. 20:55 PT WAS TRANSTIONED OFF THE AMIODARONE DRIP AND BACK TO HER ORAL DOSE OF AMIODARONE 200 MG. PT HAD A SUCCESSFUL CARDIOVERSION EARLIER IN THE DAY AND WAS IN SINUS RHYTHM.
--- NOTE | 2022-02-19 10:09 | NUR ---
CARE ASSUMPTION THIS RN ASSUMED CARE FROM DIALLO GARCIA AT 0700. VSS. TELE AFIB 120-130S. PATIENT IS ALERT AND ORIENTED X4. PERRLA. NEURO INTACT. PATIENT REPORTS NO NUMBNESS OR TINGLING. PATIENT REPORTS NO CHEST PAIN/PRESSURE. STRONG RADIAL AND PEDIS PULSES BILATERALLY. PATIENT REPORTS NO PAIN. PATIENT REPORTS NO SHORTNESS OF BREATH, BUT HAS SOME WITH EXERTION, BUT IT IS IMPROVING SINCE WHEN SHE FIRST ARRIVIED. LUNG SOUNDS CLEAR. ABD SOFT NONTENDER AND ACTIVE. SKIN IS CLEAN DRY AND INTACT. SEE SHIFT ASSESSMENT FOR FULL DETAILS. PATIEN IS A STAND BY ASSIST WHEN GETTING UP. PATIENT USES CALL LIGHT APPRORPIATELY. MD ERNANDEZ IN TO SEE PATIENT THIS AM AND DISCUSSED THE PLAN OF CARE. MD LUCAS, FEATURES EDITOR, IN TO SEE PATIENT THIS AM AND DISCUSSED PLAN OF CARE AND NEW MEDICATION THAT HE WILL BE ADDING TO IMPROVE RATE CONTROL. PATIENT VERABLIZED UNDERSTANDING OF PLAN AND HAS NO QUESTIONS OR CONCERNS AT THIS TIME. BED IS IN LOWEST POSITION AND CALL LIGHT WITHIN REACH. WILL CONTINUE TO MONITOR AND PROVIDE CARE.
--- NOTE | 2022-02-19 17:26 | NUR ---
SHIFT SUMMARY PATIENT NEURO REMAINS INTACT. VSS. TELE AFIB 90-110S. PATIENT CALLS WHEN NEEDING ASSISTANCE TO THE BATHROOM AND IS A STAND BY ASSIST. PATIENT FAMILY HAS BEEN AT BEDSIDE THROUGHOUT THE DAY. NO ACUTE CHANGES THIS SHIFT. CALL LIGHT IS WITHIN REACH AND BED IS IN LOWEST POSITION. WILL CONTINUE TO MONITOR AND PROVIDE CARE UNTIL HAND OFF WITH NEXT SHIFT.
--- NOTE | 2022-02-20 06:01 | NUR ---
SHIFT SUMMARY ASSUMED CARE OF PT AT 1900. PT IS A/OX4. HEART SOUNDS IRREGULAR, PT WAS IN AFIB AVERAGING 90-110 T/O THE NIGHT. PT WAS INDEPENDNT IN THE ROOM. NO COMPLAINTS DURING THE NIGHT.
[2022-02-20] MEDS ORDERED: DIGOX125 MC1 PO (10:05)
--- NOTE | 2022-02-20 14:30 | NUR ---
CARE SUMMARY Assumed care of pt at 0700 from Nette Ruiz. Pt A&O x 4. Answers questions. Follows commands. Verbalizes needs. Pleasant and cooperative with care. Afib per monitor, rate 90s. BP stable. Pt ambulated in hallway with daughter, Kerry. HR increased to 110s, pt reported shortness of breath with ambulation but pt and daughter stated "that's normal". Seen by both Mary Ann Warren and Kaz prior to discharge. Dr King discussed plan of care with pt's daughter, Kerry, over telephone as she had departed from unit at that time. Medications faxed to [facility]. IV access discontinued.
== END 2022-02-20 11:03 | disposition home or self-care (01) | DRG 309 ==
LOC: ER 18:47 → PCU 18:48
PROVIDERS: Family Medicine; Physician Assistant; ADMIT Internal Medicine
PROC: 5A2204Z Restoration of Cardiac Rhythm, Single (ICD-10-PCS; principal; 2022-02-17)
DX: I48.91 Unspecified atrial fibrillation (principal); I13.0 Hypertensive heart and chronic kidney disease with heart failure and stage 1 through stage 4 chronic kidney disease, or unspecified chronic kidney disease; I50.32 Chronic diastolic (congestive) heart failure; Z68.41 Body mass index [BMI] 40.0-44.9, adult; E87.2 Acidosis; E66.01 Morbid (severe) obesity due to excess calories; R06.2 Wheezing; M19.90 Unspecified osteoarthritis, unspecified site; E78.5 Hyperlipidemia, unspecified; N18.30 Chronic kidney disease, stage 3 unspecified; Z96.652 Presence of left artificial knee joint; Z98.49 Cataract extraction status, unspecified eye; Z98.1 Arthrodesis status; Z88.0 Allergy status to penicillin; Z79.899 Other long term (current) drug therapy; Z87.891 Personal history of nicotine dependence
CPT/HCPCS: 36415; 71046; 80053; 83690; 83735; 83880; 84484; 85025; 92960; 93005; 93010; 93306; 94760; 96365; 96366; 96375; 99285-25; A9270; J0282; J1160; J1650; J1940; J2405; J2704; J7030; J7060

== ENCOUNTER 2022-02-25 14:07 | Day surgery (SDC) | payer MEDICARE ==
[~2022-02-25] VITALS: Ht 167.6 cm; Wt 95.9 kg
[~2022-02-25 14:07] MED LIST changes: +AMIODARONE HCL100 M3 PO; +DIGOX125 MC1 PO
[2022-02-25] MEDS ORDERED: METO50ER PO (16:35)
--- NOTE | 2022-02-25 16:35 | NUR ---
PT AWAKE AND CONVERSING APPROPRIATELY POST CAREDIOVERSION, DENIES PAIN. PT IN SR 70-80'S, SPO2 96% RA. PT'S DAUGHTER AT BEDSIDE, ATTENTIVE.
--- NOTE | 2022-02-25 17:10 | NUR ---
PT DRESSED SELF WITH MIN ASSISTANCE, IV REMOVED-CANNULA INTACT. PT AND DAUGHTER RECEIVED DISCHARGE INSTRUCTIONS, MED LIST AND AFTER CARE INSTRUCTIONS; VERBALIZED GOOD UNDERSTANDING. PT LEFT FACILITY VIA W/C, CONDITION STABLE.
== END 2022-02-25 22:48 | disposition home or self-care (01) ==
LOC: MHTC 14:07
DX: I48.91 Unspecified atrial fibrillation (principal)
CPT/HCPCS: 92960; 93005; 93010; J2704; J7030

== ENCOUNTER 2025-05-06 11:29 | Emergency (ER) | payer MEDICARE ==
[~2025-05-06] VITALS: Ht 160 cm; Wt 102.5 kg
[~2025-05-06 11:29] MED LIST changes: +METO50ER PO
[2025-05-06 12:09] VITALS: BP 153/84
[2025-05-06] MEDS ORDERED: Diflucan100 MG PO (14:11)
[2025-05-06] MEDS ORDERED: NYSTRIT TOP (14:11)
== END 2025-05-06 14:15 | disposition home or self-care (01) ==
LOC: ER 11:29
DX: B37.2 Candidiasis of skin and nail (principal); E78.5 Hyperlipidemia, unspecified; I48.91 Unspecified atrial fibrillation; I13.0 Hypertensive heart and chronic kidney disease with heart failure and stage 1 through stage 4 chronic kidney disease, or unspecified chronic kidney disease; N18.30 Chronic kidney disease, stage 3 unspecified; I50.30 Unspecified diastolic (congestive) heart failure; Z88.0 Allergy status to penicillin; Z79.899 Other long term (current) drug therapy; Z79.01 Long term (current) use of anticoagulants
CPT/HCPCS: 99282